=== PATIENT | male | born 1995 | race Caucasian/White ===

== ENCOUNTER 2024-06-21 09:24 | Emergency (ER) | payer SELFPAY ==
[2024-06-21 09:28] VITALS: BP 127/96; PULSE 95; TEMP 36.5; O2SAT 100; BMI 30.5
--- NOTE | 2024-06-21 09:37 | ED.GENADUL1 ---
HPI HPI - General Adult General Chief complaint: Skin/Abscess/Foreign Body Stated complaint: RASSH ON BODY Time Seen by Provider: 06/21/24 09:27 Source: patient Mode of arrival: walk-in History of Present Illness HPI narrative: Patient presents to ED complaining of a rash. It started small on his wrist and has continued to spread and is now on most of his body including his face and private areas. He has tried Benadryl at home and [id number] creams but nothing seems to be helping. He said the rash is itchy not painful. He does report that he has been exposed to possible poison miguel. No shortness of breath no wheezing no new medications soaps lotions or laundry detergent. Related Data Previous Rx's ?Medication ?Instructions ?Recorded prednisone 20 mg tablet 20 mg PO BID PLEASE SEE TAPER #20 06/21/24 tabs Allergies Allergy/AdvReac Type Severity Reaction Status Date / Time No Known Drug Allergies Allergy Verified 06/21/24 09:27 Opioid HPI Opioid Management Most Recent Opioid Data: No Data to Display Review of Systems ROS Status of ROS 10 or more systems reviewed and unremarkable except as noted in history and below Exam Narrative Exam Narrative: General: alert, no acute distress Cardiovascular: regular rate and rhythm, normal peripheral perfusion. Respiratory: Lungs CTA, respirations non labored. Extremities: no deformity, no trauma. Neurological: oriented x 4, LOC appropriate for age. Diffuse maculopapular rash with linear streaking consistent of most likely poison miguel rash Constitutional Vital Signs, click to edit/add: Last Vital Signs Temp 97.7 F 06/21/24 09:28 Pulse 95 H 06/21/24 09:28 Resp 18 06/21/24 09:28 BP 127/96 H 06/21/24 09:28 Pulse Ox 100 06/21/24 09:28 O2 Del Method Room Air 06/21/24 09:28 Course Vital Signs Vital signs: Vital Signs Temperature 97.7 F 06/21/24 09:28 Pulse Rate 95 H 06/21/24 09:28 Respiratory Rate 18 06/21/24 09:28 Blood Pressure 127/96 H 06/21/24 09:28 Pulse Oximetry 100 06/21/24 09:28 Oxygen Delivery Method Room Air 06/21/24 09:28 Temperature 97.7 F 08/20/24 09:28 Pulse Rate 95 H 06/21/24 09:28 Respiratory Rate 18 06/21/24 09:28 Blood Pressure 127/96 H 06/21/24 09:28 Pulse Oximetry 100 06/21/24 09:28 Oxygen Delivery Method Room Air 06/21/24 09:28 Medical Decision Making MDM Narrative Medical decision making narrative: Patient's rash appears to be most likely consistent with poison miguel. Will send home on a steroid taper. Return to ED if worsening symptoms otherwise follow-up with Primary doctor or dermatology Differential Diagnosis Differential Diagnosis: Allergic reaction, poison miguel, poison oak Discharge Plan Discharge Stand Alone Forms: Portal Instructions Chief Complaint: Skin/Abscess/Foreign Body Clinical Impression: Poison miguel dermatitis Patient Disposition: Home, Self-Care Time of Disposition Decision: 09:34 Condition: Good Mode of Transportation: Private Vehicle Prescriptions / Home Meds: New prednisone 20 mg tablet 20 mg PO BID MDD FOLLOW TAPER BELOW, Thanks! Qty: 20 0RF Rx Instructions: TAPER DIRECTED: 60 mg po daily x 2 days 50 mg x 2 days 40 mg x 2 days 30 mg x 2 days 20 mg x 2 days 10 mg x 2 days Print Language: [place] Instructions: Contact Dermatitis (ED) Referrals: ARON BALLESTEROS [Primary Care Provider] - 1 week
== END 2024-06-21 09:51 | disposition home or self-care (01) ==
PROVIDERS: Emergency Provider Emergency Medicine; PCP Family Medicine
DX: L23.7 Allergic contact dermatitis due to plants, except food (principal)
CPT/HCPCS: 99283

== ENCOUNTER 2025-02-16 09:45 | Emergency (ER) | payer SELFPAY ==
[2025-02-16 09:48] VITALS: BP 168/84; PULSE 108; TEMP 37.2; O2SAT 99; BMI 29.0
--- OUTSIDE RECORDS SUMMARY | 2025-02-16 09:53 | XMS_ITS | CCD ---
Author Organization [facility] Care Team Providers Care Environmental Studies Faculty Member Name Role Phone SATHYA, KHALED Unavailable Unavailable SATHYA, KHALED Unavailable Unavailable DAKHIL, NOMA Unavailable Unavailable SATHYA, KHALED Unavailable Unavailable SATHYA, KHALED Unavailable Unavailable SATHYA, KHALED Unavailable Unavailable SATHYA, KHALED Unavailable Unavailable SATHYA, KHALED Unavailable Unavailable SATHYA, KHALED Unavailable Unavailable [place] Vargas Emergency Provider NO FAMILY, PHYSICIAN Primary Care Provider Unava ilable Anthony Vargas Attending Unavailable Anthony Vargas Admitting Unavailable NO FAMILY, PHYSICIAN Primary Care Unavailable Medications Current Medications Medication Drug Class(es) Dates Sig (Normalized) Sig (Original) cephalexin 500 mg oral capsule (1 source) Cephalosporin Antibacterial Start: 02-13-2024 take 500 mg by mouth four times daily Cephalexin Active 500 MG PO Four times daily February 13, 2024 12:00am [place] (No Known Home Meds) (1 source) Start: 06-01-2021 [place] (No Known Home Meds) Active June 01, 2021 12:00am Completed/Discontinued Medications Medication Drug Class(es) Dates Sig (Normalized) Sig (Original) dicyclomine hydrochloride 10 mg oral capsule (1 source) Anticholinergic Start: 10-28-2017 End: 06-01-2021 take 2 capsules by mouth three times daily Dicyclomine (Bentyl) 10 mg capsule Discontinued 20 MG PO Three times daily October 28, 2017 1:00am June 01, 2021 5:34pm naproxen 500 mg oral tablet (1 source) Nonsteroidal Anti-inflammatory Drug Start: 08-31-2017 End: 06-01-2021 take 1 tablet by mouth twice daily at mealtime Naproxen (Naprosyn) 500 mg tablet Discontinued 500 MG PO Twice daily August 31, 2017 12:00am June 01, 2021 5:34pm administer with food or milk promethazine hydrochloride 25 mg oral tablet (2 sources) Phenothiazine Start: 10-28-2017 End: 06-01-2021 take 25 mg by mouth every six hours Promethazine Discontinued 25 MG PO Q6H January 16, 2018 12:00am June 01, 2021 5:34pm Sucralfate (Carafate) 100 mg/mL Suspension (1 source) Start: 10-28-2017 End: 06-01-2021 take 1 mL by mouth four times daily Sucralfate (Carafate) 100 mg/mL Suspension Discontinued 5 ML PO Four times daily October 28, 2017 1:00am June 01, 2021 5:34pm Problems Problem Classification Problem Date Documented Da te Episodic/Chronic Abdominal pain (1 source) Abdominal pain; Translations: [Unspecified abdominal pain] 10-14-2023 Episodic Nausea and vomiting (1 source) Nausea and vomiting; Translations: [Nausea with vomiting, unspecified] 10-14-2023 Episodic Open wounds of head; neck; and trunk (2 sources) Laceration - injury; Translations: [Laceration] 10-14-2023 Episodic Other aftercare (1 source) Surgical follow-up; Translations: [Encounter for removal of sutures] 10-14-2023 Episodic Other injuries and conditions due to external causes (1 source) Injury of head; Translations: [Unspecified injury of head, initial encounter] 02-13-2024 Episodic Other injuries and conditions due to external causes (1 source) Unspecified injury of head, initial encounter; Translations: [Unspecified injury of head, initial encounter] Onset: 02-13-2024 Episodic Sprains and strains (1 source) Sprain of knee; Translations: [Sprain of unspecified site of unspecified knee, initial encounter] 10-14-2023 Episodic Unclassified (1 source) Unknown / UNK(Unknown) Onset: 11-19-2017 Results Test Name Value Interpretation Reference Range Facility CT head/brain wo linn 02-13 CT head/brain wo [facility] Main [address] [address] [address] Scan Report Signed Patient: Gospodarek,Suleman E MR#: [id number] : 1995 Acct:[id number] Age/Sex: 28 / M ADM Date: 02/13/24 Loc: ER Room: Type: [facility] ER Attending Dr: Copies to: Anthony Vargas APRN Ordering Provider: Anthony Vargas APRN Date of Service: 02/13/24 CT/CT head/brain wo con: puncture wound right episcopalian, head injury CT head/brain wo con 02/13/2024 5:58 PM SIGNS AND SYMPTOMS: puncture wound right episcopalian, head injury TECHNIQUE:Multi-detector CT axial slices of the brain were obtained without IV contrast. CT was performed with one or more of the following dose reduction techniques: Automated exposure control, adjustment of the mA and/or kV according to patient size, or use of iterative reconstruction technique. COMPARISON: None. FINDINGS: There is no shift of the midline structures, acute intracranial bleeding, mass effects, or evidence of acute ischemia. The ventricular system is normal in size. The brainstem and the cerebellum are unremarkable. The visualized intraorbital contents and the infratemporal soft tissues show no acute abnormality. Mild mucosal thickening is noted in the left ethmoid air cells. The osseous structures in the skull base and the calvarium show no abnormality. There is a laceration with small subcutaneous scalp hematoma in the right temporal scalp. No underlying fracture. CT/CT head/brain wo con IMPRESSION: No acute intracranial pathology. Impression dictated by: Paolo Perez M.D.02/14/2024 9:06 AM Dictation Location: [place] [address] Transcribed By: [facility] 02/14/24905 Dictated By: Paolo Perez II, MD 02/14/24902 Signed By: 02/14/24905 Normal [facility] Outside Recordson 05-27-2021 Outside Records [id number] Normal [facility] Coding Summaryon 06-04-2020 Coding Summary CODING DATE: 06/04/2020 [facility] STATUS: Home PAYOR: Self Pay ADMIT DX: REASON FOR VISIT DX: Z20.828 Contact with and (suspected) exposure to other viral communicable diseases FINAL DX: PRINCIPAL: Z20.828 Contact with and (suspected) exposure to other viral communicable diseases SECONDARY: PYMT PROC APC STAT DESCRIPTION DOCTOR NAME DATE NOTE: The code number assigned matches the documented diagnosis and / or procedure in the patient's chart. However, the narrative phrase printed from the coding software may appear abbreviated, or result in slightly different terminology. Coded By: Ale Bartlett Date Saved: 06/04/2020 01:13 pm [facility] SULEMAN GILLESPIE ([id number]) 1995 MDate Time Provider Department11/24/17 WILMAR DIMAS During your visit today, we recorded the following information about you:Gerda Sallie Adm Asst II 11/24/2017 10:34 AM SignedCall from patient's girlfriend Renetta, states Suleman is having a lot ofabdominal pain, nausea, 20lb weight loss in the past 2 months, with most of itbeing in the last 2 weeks. Had EUS last week with Dr. Mcdonnell. Renetta iswondering what other medication he can be given, states the Bentyl is nothelping. Please review and call patient to discuss.Thanks,Gerda Rizo Adm Asst Hannah Oliveira RN 11/24/2017 11:[address]Dr[address] Dimas, please review note from below from Gerda.Please advise.Elva Dimas MD 11/24/2017 11:39 AM SignedI reviewed patient's records including EGD and ColonoscopyHe had 2 CT scans in the pastIn 2014 he had non-specific prominent inguinal LNs in 2016: the CT scan showedsmall bowel intussusceptionNegative GESWill check labs and repeat CT scanElva Oliveira RN 11/24/2017 12:13 PM SignedGerda, can you call Renetta and let her know the plan below?I think they usually need orders faxed closer to home.Thank Xi Oliveira RNGerda Sallie [facility] Asst II 11/24/2017 2:18 PM SignedLeft message for Renetta to call me back directly to discuss.Thanks,Gerda Rizo Adm Asst IIG[facility]da [facility] Asst II 11/25/2017 1:29 PM SignedCall back from Renetta, faxed CT and lab orders to [facility] [phone].Gerda Rizo [facility] Asst IIConi Linares 12/08/2017 1:35 PM SignedRylandica from [facility] ([phone]) calls stating that she was tryingto schedule CT scan for patient but does not have a good phone number.LVM for patient on cell number listed in [email or web address] Textbook Time as well as patient's girlfrienCitySlickerloli's phone number (see below) for patient to call [facility] to give Monmikepatient's correct phone number. Renetta just called back and I gave her theOdimaxove message and Marisol's phone number. Renetta will call to schedule CT scanfor patient.Allergies As of Date: 11/24/2017(No Known Allergies)Date Reviewed: 11/19/2017Reviewed by: Lexus VasquezRn) FAYE Suazo - Fully AssessedReason for Visit: Follow Up [171] Cmt: abdominal pain, nausea, weight lossPrimary Visit Diagnosis:Periumbilical abdominal pain [R10.33]Order(s):COMP METABOLIC PANEL [SQCMP] Order #: [id number] FUTURE CBC + DIFF [SQCBCDIF] Order #: [id number] FUTURE AMYLASE BLD [SQAMYL] Order #: [id number] FUTURE LIPASE BLD [SQLIPA] Order #: [id number] FUTURE CT ABD/PEL W IVCON [3463433] Order #: [id number] FUTURE [] iv contrast (radiology procedure)CT ABD/PEL -Inject, intravenously, once for 1 dose.No IV access, insert saline lock prior to the beginning of sedation, infusion, injection of imaging exam. Discontinue saline lock post exam. If Pt. has a central line or IVAD, may access for administration according to line specific nursing protocol. Once exam is complete flush line and de-access according to line specific nursing protocol in the CT contrast administration guidelines link.Disp: 1 EachRfl: 0 [] enteric contrast (radiology procedure)For CT ABD/PEL W IVCON Routine order Administer, As Directed One Time Only, via Oral, Rectal, both Oral and Rectal, Enteric Tube, Stoma or Indwelling Catheter, Enteric Contrast as designated per enteric contrast guidelinesDisp: 1 EachRfl: 0Prescriptions as of 11/24/2017 Sig: IV CONTRAST (RADIOLOGY PROCED* CT ABD/PEL -Inject, intraveno* ENTERIC CONTRAST (RADIOLOGY P* For CT ABD/PEL W IVCON Routin* PROMETHAZINE 25 MG TABLET Take 1 tablet by mouth every * PAROXETINE 10 MG TABLET Take 10 mg by mouth once marilou* DICYCLOMINE 10 MG CAP (BENTYL* Take 10 mg by mouth before me*Problem List As Of Date 11/24/2017 Noted Resolved Marijuana use [F12.90] INVALID FOR* Anxiety [F41.9] INVALID FOR* Tobacco use [Z72.0] INVALID FOR* Periumbilical abdominal pain [R10.33] INVALID FOR*Prescriptions ordered this encounter Disp Refills Start End IV CONTRAST (RADIOLOGY PROCEDURE) 1 Ea* 0 11/24/2017 11/25/2017 Class: In Office Sig: CT ABD/PEL -Inject, intravenously, once for 1 dose.No IV access, insert saline lock prior to the beginning of sedation, infusion, injection of imaging exam. Discontinue saline lock post exam. If Pt. has a central line or IVAD, may access for administration according to line specific nursing protocol. Once exam is complete flush line and de-access according to line specific nursing protocol in the CT contrast administration guidelines link. ENTERIC CONTRAST (RADIOLOGY PROCEDUR* 1 Ea* 0 11/24/2017 11/25/2017 Class: In Office Sig: For CT ABD/PEL W IVCON Routine order Administer, As Directed One Time Only, via Oral, Rectal, both Oral and Rectal, Enteric Tube, Stoma or Indwelling Catheter, Enteric Contrast as designated per enteric contrast guidelinesEncounter Number: [id number] Status:Closed by GERDA KEE II on 11/25/17 Normal [facility] ANES Hiren 11-19-2017 ANES POST HNO ID: [id number] thor: Thomas GaldamezoService: Critical CareAuthor Type: AnesthesiologistType: Anesthesia PostOpFiled: 11/19/2017 11:07 AMNote Text:POST ANESTHESIA EVALUATION NOTESERVICE DATE: 11/19/2017SERVICE TIME: 11:07 AMDOB: 1995Vitals: Temp: 36.1 ?C (97 ?F) 11/19/1809BP: 93/66 97/70 90/57 96/66 11/19/1809Pulse: 72 73 77 78 11/19/1809Resp: 20 22 12 16 11/19/1809SpO2: 100% 100% 100% 100%Validated Vital Signs: YesPOST ANES STATUS: No apparent anesthetic complications. The patient isappropriately hydrated with stable respiratory and cardiovascular status.Patient has safe and adequate airway control. The patient has appropriatepain relief and no significant post operative nausea or vomiting. Thepatient has achieved baseline mental status.Further assessment by Anesthesia Service: NoneOther Remarks:SIGNATURE: Thomas Quiroz DO PATIENT NAME: Suleman GillkDATE: November 19, 2017 : 11:07 AM PAGER/CONTACT #: [phone] [facility] ANES PREOPon 11-19-2017 ANES PREOP HNO ID: [id number] thor: Thomas Andrew EloService: Critical CareAuthor Type: AnesthesiologistType: Anesthesia PreOpFiled: 11/19/2017 9:32 AMNote Text: ANESTHESIOLOGY DAY OF SURGERY NOTESERVICE DATE: 11/19/2017SERVICE TIME: 9:31 AMDOB: 1995Procedure(s) (LRB):ENDOSCOPY UPPER GI W/ ENDOSCOPIC ULTRASOUND EXAMINATION, (N/A)Surgeon(s):April Berger body mass index is 21.7 kg/(m2) as calculated from thefollowing: Height as of 05/11/17: 182.9 cm (6'). Weight as of 05/11/17: 72.6 kg (160 lb).Most recent hematocrit and potassium results:No results found for this basename: HCT,HEMATOCRIT,K,POTASSIUMANES DOS/PREOP NOTE:Vitals:There were no vitals filed for this visit.ACTIVE PROBLEM LISTMarijuana UseAnxietyTobacco UsePeriumbilical Abdominal PainPAST MEDICAL HISTORYDiagnosis Date- Abdominal pain- Anxiety- Chronic migraine- Insomnia- Marijuana use daily- Tobacco use cigarette x 5 years, vapor cig x 1.5 yearsPAST SURGICAL HISTORYProcedure Laterality Date- COLONOSCOPY 01/30/2017 Dr. Dimas-internal hemorrhoids. TI/random Bx's-unremarkable.- EGD 09/05/2015 Dr. Yusuf-normal.- EGD 09/02/2016 Dr. Yusuf-normal.- EGD 01/30/2017 Dr. Dimas-gastritis. Gastric ulcers. SB Bx-unremarkable. A singlesubmucosal papule found in stomach Bx-unremarkable. AntrumBx-unreamarkable, HP negative. Esophageal Bx-unremarkable.- EGD EUS 05/18/2017 Dr. 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 FNA-non diagnostic. Specimen contains oxyntic cells only;submucosal cells are not presentFAMILY HISTORYProblem Relation Age of Onset- Heart Mother- Diabetes Maternal Grandmother- Diabetes Maternal GrandfatherSocial History:Social HistorySubstance Use Topics- Smoking status: Current Every Day Smoker Years: 7.00- Smokeless tobacco: Current User Types: Chew Comment: vapor cig (quit regular cigarettes x 1.5 years)- Alcohol use Yes Comment: sociallyNo current facility-administered medications on file prior to encounter.Current Outpatient Prescriptions on File Prior to Encounter:promethazine (PHENERGAN) 25 mg tablet Take 1 tablet by mouth every 6 hoursas needed.PARoxetine (PAXIL) 10 mg tablet Take 10 mg by mouth once daily.dicyclomine (BENTYL) 10 mg capsule Take 10 mg by mouth before meals and atbedtime.Current Facility-Administered Medications:NaCl 0.9% iv infusion 30 mL/hr INTRAVENOUS CONTINUOUS April Davidergies: ALLERGIESNo Known AllergiesDOS EXAM: Adequate NPO status: YesAnesthetic risks, benefits, alternatives, personnel and consent discussed:YesPatient agrees to proceed: YesPrevious Anesthesia: No history of adverse event.Airway Assessment: MP 1; Neck ROM: Full ROM without neurologic symptoms;Airway Evaluation: No significant abnormalitiesSymptoms of Sleep Apnea: NoneDentition: missing tooth top back leftAdditional Physical Exam:Lungs: Lungs clear to auscultation. Good diaphragmatic excursion.Cardiac: normal S1 and S2; no rubs, no murmurs, and no gallopsAdditional Pertinent Findings: N/ABlood Products: Not anticipated for this procedure.Anesthetic Plan: MAC with SedationPain Management Plan: Parenteral or OralASA Class: 2Other Medical Problems:SmokerDrug abusePsychiatric illnessChronic Beta Arminda medication administered within 24 hours: N/AI have interviewed and examined the patient. I have reviewed the medicalrecord and/or the pre-anesthesia evaluation, pertinent labs, and testresults.Significant changes in the patient's condition since the History andPhysical, not otherwise documented in primary service progress notes: NoThis contains updated information obtained within 48 hours ofSurgery/Procedure.SIGNATURE: Thomas Quiroz DO PATIENT NAME: Suleman GillkDATE: November 19, 2017 : 9:31 AM CSN: [id number] Normal [facility] CYTOLOGYon 11-19-2017 [facility]TOLOGY [facility]: [id number] Physician: LAWSON WhitfieldPECSTACIA SUBMITTEDA: ABDOMEN, FINE NEEDLE ASPIRATE (THINPREP AND SMEARS) FIN AL DIAGNOSISA. ABDOMEN, FINE NEEDLE ASPIRATE (THINPREP AND SMEARS)Non-diagnostic specimen.Material insufficient for diagnosis.COMMENTDr. Paolo Zamora has reviewed this case with concurrence.Samaria Rivas M.D. (Electronic Signature) CLI NICAL DATA gastric submucosal massADEQUACY INTERPRETATIONFine Needle Aspiration 2 passes.On site evaluation Pass 1; Limited cellularity. Pass 2; placed in CytoLyt,no smear made Reported to Dr. Mcdonnell by Dr. Andrea Rivas [facility], [address] [place], [place] [address]GROSS [id number] ml clear and colorless CytoLyt with scant particles. 1 ThinPrep, 1 fixedslide, 1 air dried slideSTAINSA: ABDOMEN, FINE NEEDLE ASPIRATE (THINPREP AND SMEARS) SMEARS RECEIVED x 2, THIN PREP Non-GynPatient ID #: [id number] of Report: 11/20/2017Date of Procedure: 11/19/2017Date of Receipt: 11/19/2017Submitted by: April Mcdonnell MDLocation: SORCDiagnostic interpretation performed at [facility], [address] [place] [address]. Normal [facility] Comment on above: Performed By: #### FNABDN ####[place] [address] HISTORY PHYSICALon HISTORY PHYSICAL HNO ID: [id number]: April WelchaService: GastroenterologyAuthor Type: PhysicianType: HANDPFiled: 11/19/2017 9:36 AMNote Text:UPDATED HISTORY AND PHYSICAL EXAMINATIONSERVICE DATE: 11/19/2017SERVICE TIME: 9:35 AMPHYSICAL EXAM MUST BE COMPLETED ON ADMISSIONThe History and Physical (completed in the past 30 days) has been reviewedand the patient has been examined. The contents accurately reflect thepatient's condition with the following additions or revisions since theHANDP was completed.Examination indicates no changes.This HANDP can be found in the Electronic Medical Record dated 05/11/17.SIGNATURE: April Mcdonnell MD PATIENT NAME: Suleman GillkDATE: November 19, 2017 : 9:35 AM PAGER: [phone] [facility] HOSPon 10-20-2017 Weight Patient:Susanna GillespieMRN: Height:6' 0 (1.829 m)Weight:No patient weight recorded within the last 30 days.Outpatient Medications as of 11/19/17:promethazine (PHENERGAN) 25 mg tabletPARoxetine (PAXIL) 10 mg tabletdicyclomine (BENTYL) 10 mg capsuleAdmission/Clinic Administered Medications as of 11/19/17:NaCl 0.9% iv infusionlactated ringers infusionondansetron 4 mg tab(s) (ZOFRAN)ondansetron (PF) 4 mg injection (ZOFRAN)Problem List:Marijuana use [F12.90]Anxiety [F41.9]Tobacco use [Z72.0]Periumbilical abdominal pain [R10.33]Allergies:No Known AllergiesDate Verified:11/19/17Lab ValuesNo results within the last 30 days for the following basenames: K,HCTNo progress notes entered within the past 30 days [facility] CNCOon 10-19-2017 CNCO Letter TextDigestive Disease [facility] [address] [place], [place] [address]Ubkza: [phone]: [phone] Ultrasound (EUS)Suleman Gillespie October 19, 2017Appointment Date: 11/19/17Arrival Time: 9:00amLocation: [facility], [address], [place], [place]. Main Entrance, 1st Floor, Surgery CenterWhat is EUS?Endoscopic ultrasonography (EUS) allows your doctor to examine youresophageal and stomach linings as well as the lam of your upper and lowergastrointestinal tract. The upper tract consists of the esophagus, stomachand duodenum; the lower tract includes your colon and rectum. EUS is alsoused to study other organs that are near the gastrointestinal tract,including lungs, liver, gallbladder and pancreas.Endoscopists are highly trained specialists who welcome your questionsregarding their credentials, training and experience. Your endoscopist willuse a thin, flexible tube called an endoscopie that has a built-in miniatureultrasound probe. Your doctor will pass the endoscope through your mouth oranus to the area to be examined. Your doctor then will use the ultrasound touse sound waves to create visual images of the digestive tract.Why is EUS done?EUS provides your doctor with more information than other imaging tests byproviding detailed images of your digestive tract. Your doctor can use EUS todiagnose certain conditions that may cause abdominal pain or abnormal weightloss. EUS is also used to evaluate known abnormalities, including lumps orlesions, which were detected at a prior endoscopy or were seen on x-raytests, such as a computed tomography (CT) scan, EUS provides a detailed imageof the lump or lesion, which can help your doctor determine its origin andhelp treatment decisions. EUS can be used to diagnose diseases of thepancreas, bile duct and gallbladder when other tests are inconclusive orconflicting.What Preparation is Required? For the best and safest examination, thestomach must be completely empty. You should not eat for 12 hours prior andnothing to drink for 12 hours prior to your procedure time! Please discussyour medications with your physician prior to your procedure to determine ifany medication adjustments need to be made. Please also inform your physicianif you have any drug allergies or any major health conditions such asdiabetes, heart or lung disease. If you take medications in the morning forasthma, a heart condition or seizure disorder you may take them with a smallsip of water 4 hours prior to your procedure. Hold off on all othermedications until after the procedure.Three days prior to your procedure discontinue iron, blood thinningmedications including Coumadin (Warfarin), Plavix (Clopidogrel Bisulfate),Effient and Pradaxa.You need to have a responsible jinrikisha driver on the day of your procedure. You arenot permitted to drive or work due to the medication you will receive. Dueto the sedation, Taxi Cabs, Uber, Senior Transportation, or Gxhbyyx-X-Svwptzh NOT acceptable unless you bring another person with you. This is foryour safety and therefore, no exceptions will be made.Feel free to contact the office at if you have any questionsor are not able to keep your scheduled appointment. Normal [facility] 10-19-2017 HOSP Patient Update (GASTNO) RAMESHSULEMAN GREEN ([id number]) 1995 MDate Time Provider Rehwknqnho42/18/17 APRIL MCDONNELL During your visit today, we recorded the following information about you:Allergies As of Date: 10/19/2017(No Known Allergies)Date Reviewed: 05/18/2017Reviewed by: Kala Mendoza) FAYE Small - Fully AssessedPrescriptions as of 10/19/2017 Sig: PROMETHAZINE 25 MG TABLET Take 1 tablet by mouth every * 5-HYDROXYTRYPTOPHAN (5-HTP) 1* Take 100 mg by mouth once garcia* PAROXETINE 10 MG TABLET Take 10 mg by mouth once marilou* DICYCLOMINE 10 MG CAP (BENTYL* Take 10 mg by mouth before me*Problem List As Of Date 10/19/2017 Noted Resolved Marijuana use [F12.90] INVALID FOR* Anxiety [F41.9] INVALID FOR* Tobacco use [Z72.0] INVALID FOR* Periumbilical abdominal pain [R10.33] INVALID FOR*Follow-up and Disposition History RecordedClassic SmartForms filed for the EUS W/FNA, W/MAC episode:Case Surgical RequestEncounter Number: [id number] Status:Closed by KRYSTLE PANTOJA II on 11/18/17 [facility] ANES Hiren 05-18-2017 ANES POST HNO ID: [id number] thor: Cristine Gilervice: AnesthesiologyAuthor Type: AnesthesiologistType: Anesthesia PostOpFiled: 05/18/2017 1:49 PMNote Text:POST ANESTHESIA EVALUATION NOTESERVICE DATE: 05/18/2017SERVICE TIME: 1345DOB: 1995Vitals: Temp: 36.1 ?C (97 ?F) 07/17/929881 0705/18/1713BP: 104/71 95/53 104/57 91/52 05/18/1713Pulse: 72 63 69 63 05/18/1713Resp: 18 16 14 16 05/18/1713SpO2: 100% 99% 100% 99%Validated Vital Signs: YesNo apparent anesthetic complications. The patient is appropriatelyhydrated with stable respiratory and cardiovascular status. Patient hassafe and adequate airway control. The patient has appropriate pain reliefand no significant post operative nausea or vomiting. The patient hasachieved baseline mental status.Further assessment by Anesthesia Service: NoneOther Remarks:SIGNATURE: Cristine Cheung MD PATIENT NAME: Suleman GillkDATE: May 18, 2017 : 1:49 PM PAGER/CONTACT #: [facility] ANES PREOPon 05-18-2017 ANES PREOP HNO ID: [id number] thor: Leon Rowlandervice: AnesthesiologyAuthor Type: AnesthesiologistType: Anesthesia PreOpFiled: 05/18/2017 12:53 PMNote Text:REGIONAL ANESTHESIOLOGY DAY OF SURGERY NOTEPATIENT NAME: Suleman GillkMRN: [id number]: 1995Procedure(s) (LRB):ENDOSCOPY UPPER GI W/ ENDOSCOPIC ULTRASOUND EXAMINATION, (N/A)Surgeon(s):April IssaEstimairon body mass index is 21.7 kg/(m2) as calculated from thefollowing: Height as of 05/11/17: 182.9 cm (6'). Weight as of 05/11/17: 72.6 kg (160 lb).ASA Class: 1Adequate NPO status: YesAllergies:ALLERGIESNo Known AllergiesAirway Assessment: MP 1; Neck ROM: Full ROM without neurologic symptoms;Airway Evaluation: No significant abnormalitiesDentition: Teeth intactSymptoms of Sleep Apnea: DeniesVitals: BP: 104/71Pulse: 72Resp: 18SpO2: 100%Previous Anesthesia: No history of adverse event Family history ofanesthetic problems: NoneAdditional Physical Exam:Lungs: Lungs clear to auscultation. Good diaphragmatic excursion.Cardiac: Normal S1 and S2; no rubs, no murmurs and no gallopsAdditional pertinent findings: N/AOther Medical Problems/ Important Considerations:Denies chest pain and SOB with exertion.Denies change in functional capacity.Denies GERD.Chronic Beta Arminda medication administered within 24 hours: N/AAnesthetic risks, benefits, alternatives, personnel and consent discussed:YesPatient agrees to proceed: YesBlood Products: Will accept Blood/Blood ProductsAnesthetic Plan: MAC with GA as back up; Standard ASA MonitorsPain Management Plan: Parenteral or OralEPIC Chart ReviewACTIVE PROBLEM LISTMarijuana UseAnxietyTobacco UsePeriumbilical Abdominal PainPAST MEDICAL HISTORYDiagnosis Date- Abdominal pain- Anxiety- Chronic migraine- Insomnia- Marijuana use daily- Tobacco use cigarette x 5 years, vapor cig x 1.5 yearsPAST SURGICAL [id number]: EGD01/30/2017: PAST SURGICAL HISTORY OF Comment: colonoscopyFAMILY HISTORY Heart Mother Diabetes Maternal Grandmother Diabetes Maternal GrandfatherSocial History:Social HistorySubstance Use Topics- Smoking status: Current Every Day Smoker Years: 7.00- Smokeless tobacco: Current User Types: Chew Comment: vapor cig (quit regular cigarettes x 1.5 years)- Alcohol use Yes Comment: sociallyNo current facility-administered medications on file prior to encounter.Current Outpatient Prescriptions on File Prior to Encounter:promethazine (PHENERGAN) 25 mg tablet Take 1 tablet by mouth every 6 hoursas needed.5-Hydroxytryptophan (5-HTP) 100 mg cap Take 100 mg by mouth once daily.PARoxetine (PAXIL) 10 mg tablet Take 10 mg by mouth once daily.dicyclomine (BENTYL) 10 mg capsule Take 10 mg by mouth before meals and atbedtime.Inpatient medications reviewed in [facility].I have interviewed and examined the patient. I have reviewed the medicalrecord and/or the pre-anesthesia evaluation, pertinent labs, and testresults.Significant changes in the patient's condition since the History andPhysical, not otherwise documented in primary service progress notes: NoThis contains updated information obtained within 48 hours ofSurgery/Procedure.SIGNATURE: Leon Mccray MD PATIENT NAME: Suleman GillkDATE: May 18, 2017 : 12:52 PM PAGER/CONTACT #: Normal [facility] CYTOLOGYon 05-18-2017 CYTOLOGY [facility]: [id number] Physician: LAWSON WhitfieldPECIMEN SUBMITTEDA: STOMACH, FINE NEEDLE ASPIRATE FIN AL DIAGNOSISA. STOMACH, FINE NEEDLE ASPIRATENon-diagnostic specimen.Specimen contains oxyntic cells only; submucosal cells are not present.Paolo Zamora M.D. (Electronic Signature) CLI NICAL DATA submucosal lesion of stomachADEQUACY INTERPRETATIONFine Needle Aspiration - 1 pass.On site evaluation - Pass 1: Non-diagnostic. Reported to Dr. Mcdonnell by Dr. Zamora. [facility], [address] [place], [place] [address]GROSS [id number] ml clear pink CytoLyt. 1 ThinPrep, 1 fixed slide, 1 air dried slideSTAINSA: STOMACH, FINE NEEDLE ASPIRATE SMEARS RECEIVED x 2, THIN PREP Non-GynPatient ID #: [id number] of Report: 05/19/2017Date of Procedure: 05/18/2017Date of Receipt: 05/18/2017Submitted by: April Mcdonnell MDLocation: SORCDiagnostic interpretation performed at [facility], [address] [place] [address]. [facility] Comment on above: Performed By: #### PETESTOM ####[place] [id number] HISTORY PHYSICALon 7 HISTORY PHYSICAL HNO ID: [id number]: April Pardo: GastroenterologyAuthor Type: PhysicianType: HANDPFiled: 05/18/2017 12:26 PMNote Text:UPDATED HISTORY AND PHYSICAL EXAMINATIONSERVICE DATE: 05/18/2017SERVICE TIME: 12:26 PMPHYSICAL EXAM MUST BE COMPLETED ON ADMISSIONThe History and Physical (completed in the past 30 days) has been reviewedand the patient has been examined. The contents accurately reflect thepatient's condition with the following additions or revisions since theHANDP was completed.Examination indicates no changes.This HANDP can be found in the Electronic Medical Record dated 05/11/17.SIGNATURE: April Mcdonnell MD PATIENT NAME: Suleman GillkDATE: May 18, 2017 : 12:26 PM PAGER: [phone] [facility] HISTORY PHYSICALon 7 HISTORY PHYSICAL HNO ID: [id number]: Noemy PerezService: (none)Author Type: Physician AssistantType: HANDPFiled: 05/11/2017 11:45 AMNote Text:HISTORY AND PHYSICAL EXAMINATIONSERVICE DATE: 05/11/2017SERVICE TIME: 11:17 [facility] PH[facility]IAN: YEE Jim FOR VISIT:Suleman Gillespie is a 21 year old male who is scheduled for ENDOSCOPYUPPER GI W/ ENDOSCOPIC ULTRASOUND EXAMINATION at the request of Dr.Khaled Mcdonnell for consultation. My final recommendation will becommunicated back to the requesting physician by way of shared medicalrecord or letter.The patient has the following:ACTIVE PROBLEM LISTMarijuana UseAnxietyTobacco UsePeriumbilical Abdominal PainSUBJECTIVECHIEF COMPLAINT: Abdominal painHPI: Patient is a 21 year old male with c/o upper abdominal pain x 2 yearswith nausea. Constant burning and tightness in upper abdomen. Worse in AM,decreased appetite. No vomiting. Weight loss total 38 lbs over 2 years.Normal EGD 2016. Inconsistent bowel movements, occasional loose stools. Noblood in stool.PAST MEDICAL HISTORYDiagnosis Date- Abdominal pain- Anxiety- Chronic migraine- Insomnia- Marijuana use daily- Tobacco use cigarette x 5 years, vapor cig x 1.5 yearsPAST SURGICAL [id number]: EGD01/30/2017: PAST SURGICAL HISTORY OF Comment: colonoscopyFAMILY HISTORY Heart Mother Diabetes Maternal Grandmother Diabetes Maternal GrandfatherSOCIAL HISTORY:Social History Marital status: Single Spouse name: Years of education: Number of children:Social History Main Topics Smoking status: Current Every Day Smoker Packs/day: 0.00 Years: 7.00 Smokeless status: Current User Types: Chew Comment: vapor cig (quit regular cigarettes x 1.5 years) Alcohol use: Yes Comment: socially Drug use: Yes Special: Marijuana Comment: daily, last use: 05/09/2017 Sexual activity: Yes Partners with: FemaleMEDICATIONS:Prior to Admission medications as of 05/11/17 1142Medication Sig Last Dose Takingpromethazine (PHENERGAN) 25 mg tablet Take 1 tablet by mouth every 6 hoursas needed. Yes5-Hydroxytryptophan (5-HTP) 100 mg cap Take 100 mg by mouth once daily.YesPARoxetine (PAXIL) 10 mg tablet Take 10 mg by mouth once daily. Yesdicyclomine (BENTYL) 10 mg capsule Take 10 mg by mouth before meals and atbedtime. YesMedication Comments documented by Mouna Steele LPN on 05/11/2017 at 1118.Per patient, no meds for 3 weeks. May resume after surgery. Mouna SteeleLPNCURRENT ALLERGIES: ALLERGIESNo Known AllergiesREVIEW OF SYSTEMS:PAIN ASSESSMENT: PainPain Score: 4/10Pain Location: AbdomenDescription: ( tight )Duration Amount of Time: 2Duration Units: YearsFrequency: IntermittentIntervention: DeclinedGeneral: Weight loss (38 lbs over 2 years); no fevers or chillsNeuro: Postive for Migraines, Negative for Seizures Stroke-residualdeficit Stroke-No residual deficit Multiple SclerosisRespiratory: Positive for Tobacco Use (cigarette x 5 years, now only vaporcig for last 1.5 years), Marijuana use daily, Negative for Dypsnea,asthma, OSACardiovascular: No history of HTN requiring medication, no history ofangina, CHF, NH, cardiac surgery or stents. Denies rest pain, gangrene orrevascularization/amputation for PVD. No history of cardiovascularsymptoms or problems.GI: See HPIGU: No history of dysuria, frequency or incontinenceEndocrine: No history of diabetes. Has not taken steroids within the past30 days. No history of endocrinological symptoms or problems.Hematology: No history of bleeding or clotting disorder. Pt is not takinganti-coagulation or platelet medications. No history of hematologicalsymptoms or problems.Oncology: No history of CA metastasis, chemo within 30 days, orradiotherapy within 90 days. Has not lost 10% of body wt in 6 months. Nohistory of oncological symptoms or problems.Psych: AnxietyMusculoskeletal: Intermittent back painSkin: Negative for lesions, rash and itching.OBJECTIVEPHYSICAL EXAM:VITALS:BP 138/77 Pulse 85 Temp (Src) 97.8 (Temporal Artery) Resp 16 Ht 6'0 (1.83m) Wt 160 lb (72.6kg) SpO2 99% BMI 21.70 kg/(m2).General: Alert and orientedSkin: Normal color, no rash, no lesions.HEENT: EOM, pupils equal, round and reactive.Cardiovascular: Normal S1 AND S2, no rubs, murmurs or gallops. No JVD. Pulseregular.Lungs: Normal breath sounds, no wheezes or crackles.Abdomen: Soft, non-tender, no rigidity.Extremities: No deformity, no edema or tenderness, no joint swelling orclubbing.Neurological: Normal cognition and motor skills.Pulses: radial pulses normal +2.Diagnostic tests reviewed for today's visit:No new labs or testsAssessmentASSESSMENTPatient has the following medical conditions:Current marijuana useAnxiety- no longer on Rx, pt choiceUnintentional weight loss- 38 lbs over 2 yearsMigraines- occasionalTobacco use- cigarette x 5 years, now only vapor cig for 1.5 yearsMETS:Works as marine scientist, fishing and basketballParticipate in moderate recreational activities, such as golf, bowling,dancing, doubles tennis, or throwing a baseball or football (6.00 METs)Participate in strenuous sport, such as swimming, singles tennis,football, basketball, or skiing (7.50 METs)Patient denies any chest pain or undue shortness of breath with the abovephysical activity.ASA Class: 2ANESTHESIA FINDINGS:Intubation History: No prior intubationSignificant Anesthesia Considerations: NoneAirway Exam: General: Normal appearance Mallampati Score is CLASS I ULBT: Class I - Lower incisors can bite the upper lip above thevermillion line Neck: Normal appearance and function, Distance from hyoid to mentumduring neck extension is at least 3 finger breaths Mouth: Normal tongue size and Mouth opening greater than 2 finger breaths Dentition: IntactAirway History: No prior intubationSTOP BANG Score:Criteria:Male genderScore = 1PLANThis patient is optimally prepared for surgery.CONSULTS:Patient does not require consults for optimization at this time.The Following Tests/Procedures Have Been Initiated:Labs not indicated per PACC protocol, EKG not indicated per PACC protocolPlanned Anesthetic: MACInstructions Given to Patient:Patient given verbal and written preop instructions and voicescomprehension and compliance.SIGNATURE: Noemy Perez PA-C PATIENT NAME: Suleman GillkDATE: May 11, 2017 : 11:17 AM PAGER/CONTACT #: Normal [facility] NURSING PROGon 05-11-2017 NURSING PROG HNO ID: [id number] Author: Shelby (Rn) FAYE Schroeder Service: Neurosurgery Author Type: Registered Nurse Type: Nursing Progress Note Filed: 05/11/2017 2:31 PM Note Text: PACC completed. No new labs ordered. Anton Schroeder RN [facility] Vital Signs Date Time Vital Sign Value Performing Clinician Arjun alves 02-13-2024 17:290400 Body height 187.96 cm VIRGINIA Vargas Work Phone: [facility] 02-13-2024 17:29040 Body temperature 98.5 [degF] VIRGINIA Vargas Work Phone: [facility] 02-13-2024 17:29040 Body weight 99.79 kg VIRGINIA Vargas Work Phone: [facility] 02-13-2024 17:29-0400 Diastolic blood pressure 106 mm[Hg] VIRGINIA Vargas Work Phone: [facility] 02-13-2024 17:29-0400 Heart rate 122 /min RN TELEPHONE TRIAGEJigar Vargas Work Phone: [facility] 02-13-2024 17:29-0400 Respiratory rate 18 /min RN TELEPHONE TRIAGEJigar Vargas Work Phone: [facility] 02-13-2024 17:29-0400 SaO2% (BldA) [Mass fraction] 99 % RN TELEPHONE TRIAGEJigar Vargas Work Phone: [facility] 02-13-2024 17:29-0400 Systolic blood pressure 154 mm[Hg] RN TELEPHONE TRIAGEJigar Vargas Work Phone: [facility] Encounters Encounter Date Encounter Type Care Provider Facility Start: 02-13-2024 End: 02-13-2024 Emergency department patient visit Anthony Vargas Facility:[facility] Start: 02-13-2024 End: 02-13-2024 Emergency department patient visit VIRGINIA Vargas Work Phone: [facility] Work Phone: Start: 11-19-2017 End: 11-19-2017 Ambulatory APRIL SATHYA [facility] Start: 05-18-2017 End: 05-18-2017 Ambulatory APRIL MCDONNELL [facility] Start: 05-11-2017 End: 05-12-2017 Ambulatory APRIL [facility] Plan of Treatment Date Care Activity Detail Author Start: 02-13-2024 CT of head without contrast CT head/brain wo con [facility] Start: 02-13-2024 CT Unspecified body region WO contrast [facility] Patient Education Wound Care (DC ) Minor Head Injury (DC) [facility] Work Phone: Patient referral [facility] Work Phone: Payers Date Payer Category Payer Self-pay [id number] 2024 Worker's Compensation [id number] Medicaid [place] [employer] [id number] Unknown [id number] Social History Date Type Detail Facility Start: 02-13-2024 Tobacco smoking stat NHIS Smoker (finding) [facility] Start: 1995 Sex Assigned At Male [facility] Discharge instructions 02-13-2024 Note Date & Type Note Facility 02-13-2024 Hospital Discharg e instructions Additional Instructions Stitches out in 7 to [address] [facility] Work Phone: Evaluation note Note Date & Type Note Facility Evaluation note No assessment information availa ble [facility] Work Phone: Summary Purpose Family History No Family History Records FoundNo Family History Records FoundNo Family History Records FoundNo Family History Records Found Advance Directives No Advanced Directives Records Found Advance Directive Response Recorded Date/ Time Advance Directives No August 31, 2017 12:13pm Chief Complaint and Reason for Visit Chief Complaint head lac Additional Source Comments (unrecognized sect ion and content) No Status Records FoundNo Status Records FoundNo Status Records FoundNo Status Records Found INFORMATION SOURCE (unrecogn ized section and content) DATE CREATED AUTHOR 04/26/2018 [facility] DATE CREATED AUTHOR AUTHOR'S ORGANIZ ATION 04/27/2018 [facility] DATE CREATED AUTHOR AUTHOR'S ORGANIZ ATION 05/28/2021 [facility] DATE CREATED AUTHOR AUTHOR'S ORGANIZ ATION 02/16/2024 [facility] Care Teams (unrecognized sec tion and content) Team Status: Active Member Role Status Dates PHYSICIAN NO FAMILY Primary Care Provider Active Team Status: Inactive Member Role Status Dates Anthony Vargas APRN Emergency Provider Active Start: February 13, 2024 End: February 13, 2024 PHYSICIAN NO FAMILY Primary Care Provider Active Start: February 13, 2024 End: Jil 13th, 2024 Goals (unrecognized section and content) Goals may be documented in a n alternate section FOR RECORDS PERTAINING TO PATIENTS WHO ARE OR HAVE BEEN ENROLLED IN A CHEMICAL DEPENDENCY/SUBSTANCEABUSE PROGRAM, SOME INFORMATION MAY BE OMITTED. This clinical summary was aggregated from multiple sources. Caution should be exercised in using it in the provision of clinical care. This summary normalizes information from multiple sources, and as a consequence, information in this document may materially change the coding, format and clinical context of patient data. In addition, data may be omitted in some cases. CLINICAL DECISIONS SHOULD BE BASED ON THE PRIMARY CLINICAL RECORDS. [facility] [employer] [facility]. provides no warranty or guarantee of the accuracy or completeness of information in this document.
--- NOTE | 2025-02-16 09:58 | ED.ABDPAIN1 ---
HPI - Abdominal Pain General Chief Complaint: Abdominal Pain Stated Complaint: ABDOMINAL PAIN Time Seen by Provider: 02/16/25 09:46 Source: patient Mode of arrival: walk-in History of Present Illness HPI narrative: 29-year-old male presents to the emergency department for abdominal pain. He has had it for a week and it is in his right upper quadrant. He is concerned about his liver. He states he has been consuming Kratom and is now worried about the effects. No constipation or diarrhea or fever. No injury. He has never had symptoms like this before. Related Data Home Medications ?Medication ?Instructions ?Recorded ?Confirmed No Known Home Medications 02/16/25 02/16/25 Allergies Allergy/AdvReac Type Severity Reaction Status Date / Time No Known Drug Allergies Allergy Verified 02/16/25 09:48 Review of Systems ROS Narrative A ten point review of systems is negative except as noted above. PFSH PFSH Social History Little interest or pleasure in doing things: not at all Feeling down, depressed, or hopeless: not at all Exam Narrative Exam Narrative: Nurses note and vital signs reviewed and patient is not hypoxic. General: The patient appears well and in no apparent distress. Patient is resting comfortably on cart. Skin: Warm, dry, no pallor noted. There is no rash noted. Head: Normocephalic, atraumatic Eye: Normal conjunctiva, no drainage Ears, Nose, Mouth, and Throat: oral mucosa is moist. Nares patent. Cardiovascular: Regular Rate and Rhythm Respiratory: Patient is in no distress, no accessory muscle use, lungs are clear to auscultation, no wheezing, rales or rhonchi Back: non-tender, no CVA tenderness bilaterally to percussion. GI: Tenderness present only in the right upper quadrant with no mass or distention Musculoskeletal: The patient has no evidence of calf tenderness, no pitting edema, symmetrical pulses noted bilaterally Neurological: A&O, normal speech Psychiatric: Cooperative Constitutional Vital Signs, click to edit/add: Last Vital Signs Temp 99.0 F 02/16/25 09:48 Pulse 108 H 02/16/25 09:48 Resp 20 02/16/25 09:48 BP 168/84 H 02/16/25 09:48 Pulse Ox 99 02/16/25 09:48 O2 Del Method Room Air 02/16/25 09:48 Course Vital Signs Vital signs: Vital Signs Temperature 99.0 F 02/16/25 09:48 Pulse Rate 108 H 02/16/25 09:48 Respiratory Rate 20 02/16/25 09:48 Blood Pressure 168/84 H 02/16/25 09:48 Pulse Oximetry 99 02/16/25 09:48 Oxygen Delivery Method Room Air 02/16/25 09:48 Temperature 99.0 F 02/16/25 09:48 Pulse Rate 108 H 02/16/25 09:48 Respiratory Rate 20 02/16/25 09:48 Blood Pressure 168/84 H 02/16/25 09:48 Pulse Oximetry 99 02/16/25 09:48 Oxygen Delivery Method Room Air 02/16/25 09:48 MDM - Abdominal Pain MDM Narrative Medical decision making narrative: Blood work is normal including LFTs. CT of the abdomen shows some gallbladder sludge and constipation. He was recommended MiraLAX and will follow-up with his doctor if symptoms persist. Treatment diagnosis and follow-up were discussed thoroughly. Differential Diagnosis Differential diagnosis: Likely abdominal pain, constipation, gastroenteritis, pancreatitis and other (Biliary colic) Lab Data Attestation: I reviewed the patient's lab results. Labs: Lab Results 02/16/25 02/16/25 Range/Units 09:55 10:00 WBC 8.0 (4.0-11.0) 10^3/uL RBC 5.16 (4.70-6.10) 10^6/uL Hgb 15.0 (14.0-18.0) g/dL Hct 44.3 (42.0-54.0) % MCV 85.9 (80.0-94.0) fL MCH 29.1 (25.9-34.0) pg MCHC 33.9 (29.9-35.2) g/dL RDW 11.9 (11.0-15.0) % Plt Count 369 (150-450) 10^3/uL MPV 8.7 L (9.5-13.5) fL Neut % (Auto) 60.0 (43.0-75.0) % Lymph % (Auto) 30.0 (20.5-60.0) % Pender % (Auto) 7.8 (1.7-12.0) % Eos % (Auto) 0.5 L (0.9-7.0) % Baso % (Auto) 1.1 (0.2-2.0) % Neut # (Auto) 4.8 (1.4-6.5) 10^3/uL Lymph # (Auto) 2.4 (1.2-3.8) 10^3/uL Pender # (Auto) 0.6 (0.3-0.8) 10^3/uL Eos # (Auto) 0.0 (0.0-0.7) 10^3/uL Baso # (Auto) 0.1 (0.0-0.1) 10^3/uL Abs Immat Gran (auto) 0.05 H (0.00-0.03) 10^3/uL Imm/Tot Granulo (auto) 0.6 H (0.0-0.5) % Sodium 138 (136-145) mmol/L Potassium 4.0 (3.5-5.1) mmol/L Chloride 101 (98-107) mmol/L Carbon Dioxide 30.3 (21.0-32.0) mmol/L Anion Gap 10.7 BUN 22.0 H (7.0-18.0) mg/dL Creatinine 1.08 (0.70-1.30) mg/dL Est GFR ( Amer) >60 (>=60 mL/min/1.73m^2) Est GFR (Non-Af Amer) >60 (>=60 mL/min/1.73m^2) BUN/Creatinine Ratio 20.4 Glucose 110 H (74-106) mg/dL Calcium 9.6 (8.5-10.1) mg/dL Total Bilirubin 0.5 (0.2-1.0) mg/dL Direct Bilirubin 0.1 (0.0-0.2) mg/dL AST 14 L (15-37) U/L ALT 21 (16-63) U/L Alkaline Phosphatase 64 (46-116) U/L Total Protein 7.7 (6.4-8.2) g/dL Albumin 4.2 (3.4-5.0) g/dL Globulin 3.5 g/dL Albumin/Globulin Ratio 1.2 Amylase 50 (25-115) U/L Lipase 18.0 (16.0-77.0) U/L Urine Color Lt. yellow (YELLOW) Urine Clarity Clear (CLEAR) Urine pH 7.5 (5.0-9.0) Ur Specific [place] 1.010 (1.005-1.025) Urine Protein Negative (NEG/TRACE) mg/dL Urine Glucose (UA) Negative (NEGATIVE) mg/dL Urine Ketones Negative (NEGATIVE) mg/dL Urine Occult Blood Negative (NEGATIVE) Urine Nitrite Negative (NEGATIVE) Urine Bilirubin Negative (NEGATIVE) Urine Urobilinogen 0.2 (0.2-1.0) EU/dL Ur Leukocyte Esterase Negative (NEGATIVE) Urine RBC 0-2 (0-2) #/HPF Urine WBC None seen (NONE SEEN) #/HPF Ur Squamous Epith Cells Rare (NONE/RARE) #/LPF Urine Crystals None seen (None Seen) #/HPF Urine Bacteria None seen (NONE SEEN) #/HPF Urine Casts None seen (NONE SEEN) #/LPF Urine Mucus None seen (NONE SEEN) Ur Culture Indicated? No Imaging Data CT scan - abdomen: Radiologist's impression: ITS Impressions Abdomen/Pelvis CT 02/16/25 10:32 IMPRESSION: POSSIBLE MINIMAL GALLBLADDER SLUDGE OR GRAVEL. NO BOWEL OR URINARY TRACT OBSTRUCTION. DIFFUSE COLONIC STOOL COMPATIBLE WITH CONSTIPATION. NO OTHER ACUTE FINDINGS. Impression dictated by: Shelby Dinero M.D.02/16/2025 11:16 AM Dictation Location: [place] [address] Electronically authenticated by: [id number] Y Date: 02/16/2025 11:16 Discharge Plan Discharge Chief Complaint: Abdominal Pain Clinical Impression: Abdominal pain, Constipation Patient Disposition: Home, Self-Care Time of Disposition Decision: 11:26 Condition: Good Mode of Transportation: Private Vehicle Prescriptions / Home Meds: No Action No Known Home Medications Print Language: Citizen Of [place] Instructions: Constipation (ED), Abdominal Pain (ED) Referrals: ARON BALLESTEROS [Primary Care Provider] - 1 week
[2025-02-16 10:10] LABS: Basophils Absolute Auto 0.1 10^3/uL (0.0-0.1); Basophils Percent Auto 1.1 % (0.2-2.0); Eosinophils Percent Auto 0.5 % (0.9-7.0); Hematocrit 44.3 % (42.0-54.0); Immature Granulocytes Abs Auto 0.05 10^3/uL (0.00-0.03); Immature Granulocytes Pct Auto 0.6 % (0.0-0.5); Lymphocytes Absolute Auto 2.4 10^3/uL (1.2-3.8); Mean Corpuscular HGB Conc 33.9 g/dL (29.9-35.2); Mean Corpuscular Hemoglobin 29.1 pg (25.9-34.0); Mean Corpuscular Volume 85.9 fL (80.0-94.0); Mean Platelet Volume 8.7 fL (9.5-13.5); Monocytes Absolute Auto 0.6 10^3/uL (0.3-0.8); Monocytes Percent Auto 7.8 % (1.7-12.0); Neutrophils Absolute Auto 4.8 10^3/uL (1.4-6.5); Platelet Count 369 10^3/uL (150-450); Red Blood Count 5.16 10^6/uL (4.70-6.10); Red Cell Distribution Width 11.9 % (11.0-15.0)
[2025-02-16 10:11] LABS: Bilirubin Urine NEGATIVE (NEGATIVE); Blood Urine NEGATIVE (NEGATIVE); Clarity Urine CLEAR (CLEAR); Color Urine LT. YELLOW (YELLOW); Glucose Urine UA NEGATIVE (NEGATIVE); Ketones Urine NEGATIVE (NEGATIVE); Leukocyte Esterase Urine NEGATIVE (NEGATIVE); Nitrite Urine NEGATIVE (NEGATIVE); Protein Urine NEGATIVE (NEG/TRACE); Urobilinogen Urine 0.2 EU/dL (0.2-1.0); pH Urine 7.5 (5.0-9.0)
[2025-02-16 10:20] LABS: Bacteria Urine NONE SEEN #/HPF (NONE SEEN); Cast Seen? NONE SEEN #/LPF (NONE SEEN); Crystals Seen? None Seen #/HPF (None Seen); Mucus Urine NONE SEEN (NONE SEEN); RBC Urine 0-2 #/HPF (0-2); Squamous Epithelial Cell Urine RARE #/LPF (NONE/RARE); Urine Culture Indicated NO; WBC Urine NONE SEEN #/HPF (NONE SEEN)
[2025-02-16 10:26] LABS: Alanine Aminotransferase 21 U/L (16-63); Albumin Globulin Ratio 1.2; Albumin Level 4.2 g/dL (3.4-5.0); Alkaline Phosphatase 64 U/L (46-116); Amylase 50 U/L (25-115); Anion Gap 10.7; Aspartate Amino Transferase 14 U/L (15-37); BUN Creatinine Ratio 20.4; Bilirubin Direct 0.1 mg/dL (0.0-0.2); Bilirubin Total 0.5 mg/dL (0.2-1.0); Calcium 9.6 mg/dL (8.5-10.1); Carbon Dioxide 30.3 mmol/L (21.0-32.0); Chloride 101 mmol/L (98-107); Estimated GFR (African America >60 (>=60 mL/min/1.73m^2); Estimated GFR (Non-African Ame >60 (>=60 mL/min/1.73m^2); Globulin 3.5 g/dL; Glucose 110 mg/dL (74-106); Sodium 138 mmol/L (136-145); Total Protein 7.7 g/dL (6.4-8.2)
--- NOTE | 2025-02-16 10:32 | CT_ITS ---
The [address] [address] Patient Name: GUNNER GILLESPIE MRN: [id number] date: 1995 Sex: M Assigned Patient Location: ER Current Patient Location: Accession/Order Number: [id number] Exam Date: 02/16/2025 11:08 Report Date: 02/16/2025 11:16 At the request of: EDWIN MC MD Procedure: CT abdomen pelvis w con CT ABDOMEN AND PELVIS WITH CONTRAST COMPARISON: None CLINICAL DATA: Right upper quadrant pain, greater at night. Nausea and constipation. Spiral images were obtained through the abdomen and pelvis 100 mL of Omnipaque 300. This CT exam was performed using one or more following dose reduction techniques: Automated exposure control, adjustment of the mA and/or kV according to patient size, or use of iterative reconstruction technique. Limited cuts through the lung bases show no contributory findings. There are no dominant calcified gallstones though minimal gravel or sludge is not excluded. No intrahepatic masses are seen. The spleen, pancreas and adrenal glands show no acute findings. There are symmetric renal nephrograms, without hydronephrosis. There is a tiny left renal cyst. The abdominal aorta is normal caliber. There are small retroperitoneal and mesenteric lymph nodes. No ascites is identified. The small bowel loops are not dilated. Moderate stool is visualized throughout the colon. There is fluid within the stomach. Slight levoscoliotic curvature and minor degenerative change is seen at the spine. Images through the pelvis show normal caliber small bowel loops. No appendiceal inflammation is seen. There is moderate stool at the distal colon. No diverticular disease is noted. No urinary bladder abnormalities are seen. There is no ascites. CT/CT abdomen pelvis w con IMPRESSION: POSSIBLE MINIMAL GALLBLADDER SLUDGE OR GRAVEL. NO BOWEL OR URINARY TRACT OBSTRUCTION. DIFFUSE COLONIC STOOL COMPATIBLE WITH CONSTIPATION. NO OTHER ACUTE FINDINGS. Impression dictated by: Shelby Dinero M.D.02/16/2025 11:16 AM Dictation Location: [place] [address] Electronically authenticated by: [id number] Y Date: 02/16/2025 11:16
== END 2025-02-16 11:33 | disposition home or self-care (01) ==
PROVIDERS: Emergency Provider Emergency Medicine; PCP Family Medicine
DX: R10.84 Generalized abdominal pain (principal); K59.00 Constipation, unspecified; R10.11 Right upper quadrant pain
CPT/HCPCS: 36415; 74177; 80048; 80076; 81001; 82150; 83690; 85025; 99285; Q9967